=== PATIENT | male | born 1970 | race Caucasian/White ===

== ENCOUNTER 2024-05-03 09:31 | Emergency (ER) | payer BC, SELFPAY ==
[2024-05-03 10:36] LABS: % Basophils 0.7 % (0-2); % Immature Granulocytes 0.2 % (0-0.5); % Lymphocytes 14.2 % (20.5-51.1); % Monocytes 6.1 % (1.7-9.3); % Neutrophils 77.8 % (42.2-75.2); Absolute Eosinophils 0.1 10^3/uL (0-0.7); Absolute Lymphocytes 0.9 10^3/uL (1.2-3.4); Absolute Monocytes 0.4 10^3/uL (0.1-0.6); Absolute Neutrophils 4.7 10^3/uL (1.4-6.5); Hematocrit 40.2 % (39.0-52.0); Mean Corp Hgb Conc. 32.3 g/dL (33.0-37.0); Mean Corpuscular Hgb 26.4 pg (27.0-31.0); Mean Corpuscular Volume 81.7 fL (80.0-94.0); Mean Platelet Volume 9.1 fL (7.4-10.4); Nucleated Red Blood Cells % 0 % (-); Platelet Count 233 10^3/uL (130-400); Red Blood Cell Count 4.92 10^6/uL (4.70-6.10); Red Cell Dist. Width 12.8 % (11.5-14.5); White Blood Cell Count 6.1 10^3/uL (4.8-10.8)
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
[2024-05-03 11:22] LABS: ALT (SGPT) 19 U/L (0-50); AST (SGOT) 20 U/L (17-59); Albumin 4.1 g/dl (3.5-5.0); Alkaline Phosphatase 72 U/L (38-126); Blood Urea Nitrogen 17 mg/dl (9-20); Calcium 8.8 mg/dl (8.4-10.2); Carbon Dioxide 23 mmol/L (22-30); Chloride 105 mmol/L (98-107); Glucose 105 mg/dl (70-99); Potassium 3.9 mmol/L (3.5-5.1); Sodium 138 mmol/L (135-145); Total Bilirubin 0.4 mg/dl (0.2-1.3); Total Protein 6.8 g/dl (6.3-8.2); eGFR > 60.00
[2024-05-03] MEDS: DILAUDID 1 MG IV (11:28)
[2024-05-03] MEDS: ZOFRAN 4 MG IV (11:28)
[2024-05-03 11:30] VITALS: BP 155/78
[2024-05-03 12:00] VITALS: BP 149/92
[2024-05-03] MEDS: TORADOL 15 MG IV (13:54)
[2024-05-03] MEDS: BENADRYL 25 MG IV (13:54)
[2024-05-03] MEDS: REGLAN 10 MG IV (13:55)
[2024-05-03 16:15] VITALS: BP 158/88
[2024-05-03] MEDS: DECADRON 10 MG IV (16:40)
[2024-05-03] MEDS: COMPAZINE 10 MG IV (17:16)
[2024-05-03] MEDS: BENADRYL 50 MG IV (17:16)
[2024-05-03] MEDS: NSS 1000 IV (17:16)
== END 2024-05-03 19:14 | disposition home or self-care (01) ==
LOC: EMR 09:31
PROVIDERS: EMERGENCY PHYSICIAN Emergency Medicine; FAMILY PHYSICIAN Physician Assistant
DX: R51.9 Headache, unspecified (principal); R11.0 Nausea; I10 Essential (primary) hypertension; K21.9 Gastro-esophageal reflux disease without esophagitis; N40.0 Benign prostatic hyperplasia without lower urinary tract symptoms
CPT/HCPCS: 99284; 96374; 96375; 96376; 96361; 70496; 70498; 80053; 85025; 93005; Q9967

== ENCOUNTER 2024-05-09 15:27 | Emergency (ER) | payer BC, SELFPAY ==
--- NOTE | 2024-05-09 16:14 | ED.GENMED ---
History of Present Illness
General
Chief Complaint: Swelling
Source: patient
Time Seen by Provider: 05/09/24 15:47
History of Present Illness
History of Present Illness:
53-year-old male presents to the emergency room complaining of pain in his left head associate with a rash and swelling of his left eyelid. Patient's left eye has been watering a lot. Symptoms began about a week ago with a headache. He was seen
here in the emergency room on May 03. He had a workup for headache which was unremarkable. Was ultimately discharged with a short course of steroids for persistent headache. After discharge the patient began experiencing a rash again in the
left scalp involving the left eyelid. Because his pain is not getting better and is eyelid began swelling he decided to come to for repeat evaluation. No fever or chills.
Past History
Past History
ED Past Medical History: GERD, HTN and Other (BPH)
ED Past Surgical History: Orthopedic and Urological (kidney stent)
Phy Exam
Physical Exam
Physical Exam:
General: Awake, Alert, Oriented X3. No acute distress.
Vitals: unremarkable
Head: Atraumatic
Eyes: Pupils equal, EOMI. swelling and erythema noted left eyelid. Left conjunctiva injected. There are dendritic lesions noted with fluorescein staining. Anterior chamber itself seems clear.
Throat: Airway intact, no exudates
Neck: Trachea midline
Lungs: Clear and equal b/l
Heart: Regular rate, no murmurs
Abd: Soft, Nontender, No pulsatile mass
Neuro: Cranial nerves intact, muscle strength equal bilaterally
Skin: Warm, dry, no rash
Extremities: pulses equal b/l, no edema
Scores
Heart Failure Risk
Heart Failure Risk Score: Not Applicable
Course
Orders/Labs/Results
Orders:
Orders
05/09/24 16:14
Gabapentin [Neurontin] 100 mg PO NOW STA
Valacyclovir HCl [Valtrex] 1,000 mg PO NOW STA
05/09/24 16:36
Oxycodone [Roxicodone] 5 mg PO NOW STA
Vital Signs
Initial and Last Documented VS:
Initial Vital Signs
Temp Pulse Resp Pulse Ox
98.5 F 101 20 99
05/09/24 15:43 05/09/24 15:43 05/09/24 15:43 05/09/24 15:43
Last Documented Vital Signs
Temp Pulse Resp BP Pulse Ox
98.5 F 101 20 182/91 99
05/09/24 15:43 05/09/24 15:43 05/09/24 15:43 05/09/24 16:36 05/09/24 15:43
MDM/Problems Addressed
Differential Diagnosis Includes:
Cellulitis, herpes zoster, herpes zoster ophthalmic
MDM/Problems Addressed:
Patient presents with a rash and presentation consistent with shingles. Will treat him with analgesia in the form of oxycodone and gabapentin. Will start antiviral medication. Will have the patient's stop oral steroids. I discussed the patient's
presentation with Dr. Guillen for she is on-call with ophthalmology. She she recommended also initiating prednisolone 1% 4 times a day as well as erythromycin ointment twice a day. Patient can follow-up in her office.
*Pulse Oximetry
Patient hypoxic: no
*Critical Care Note
Total Time (30-74mins, 75-104mins- exclusive of procedures): Not Applicable
ED Attending Note
-
Portions of this chart may have been created with voice recognition software.� Occasional wrong word or��sound alike� substitutions may have occurred due to the inherent limitations of voice recognition software.
Discharge Plan
Departure
Patient Disposition: Home (Routine Discharge)
Date of Disposition: 05/09/24
Time of Disposition: 16:25
Patient with high blood pressure during this ER visit?: Yes
Condition: Good
Discharge Problem:
Herpes zoster conjunctivitis of left eye, Herpes zoster dermatitis
Instructions: Corneal Ulcer ED, Shingles
Prescriptions:
New
valacyclovir [Valtrex] 1 gram tablet
1,000 mg PO TID Qty: 21 0RF
gabapentin 100 mg capsule
100 mg PO TID Qty: 30 0RF
prednisolone acetate 1 % drops,suspension
1 drp ophthalmic (eye) Q6H Qty: 10 0RF
erythromycin 5 mg/gram (0.5 %) ointment
1 applic ophthalmic (eye) BID Qty: 50 0RF
Rx Instructions:
left eye
oxycodone 5 mg tablet
5 mg PO Q6H PRN (Reason: Pain) Qty: 12 0RF
No Action
oxycodone 5 mg tablet
5 mg PO Q8H PRN (Reason: headache) Qty: 4 0RF
Referrals:
Beatriz Alvarez MD [Active] -
Activity Restrictions/Additional Instructions:
Please call Dr. Saldivar's office in the morning to schedule an appointment. Use prescription medication as directed. Use the oxycodone only if absolutely necessary. Also, follow up with you family doctor. Stop taking the oral prednisone.
Interventions
Interventions:
*Risk Screen - Suicide Last Done: 05/09/24 17:05
*General Assessment Last Done: 05/09/24 17:05
*Neglect/Abuse Screening Last Done: 05/09/24 17:05
ED- Fall Risk Assessment Last Done: 05/09/24 17:03
*ED COVID-19 Vaccine History Last Done: 05/09/24 17:05
*Nursing Disposition Last Done: 05/09/24 17:05
ED- Cardiac Assessment Last Done: 05/09/24 17:03
ED- Pulmonary Assessment Last Done: 05/09/24 17:03
ED-Skin Assessment Last Done: 05/09/24 17:03
Discharge Date and Time
Discharge Date/Time: 05/09/24 17:11
Print Language: WELSH
[2024-05-09] MEDS: VALTREX 1000 MG PO (16:25)
[2024-05-09] MEDS: NEURONTIN 100 MG PO (16:26)
[2024-05-09 16:36] VITALS: BP 182/91
[2024-05-09] MEDS: ROXICODONE 5 MG PO (16:38)
== END 2024-05-09 17:11 | disposition home or self-care (01) ==
LOC: EMR 15:27
PROVIDERS: EMERGENCY PHYSICIAN Emergency Medicine; FAMILY PHYSICIAN Physician Assistant
DX: B02.31 Zoster conjunctivitis (principal); B02.8 Zoster with other complications; I10 Essential (primary) hypertension
CPT/HCPCS: 99283